=== PATIENT | male | born 1965 | race Caucasian/White ===

== ENCOUNTER 2019-09-09 19:40 | Emergency (ER) | payer MEDICAID ==
[~2019-09-09] VITALS: Ht 170.2 cm; Wt 97.1 kg
[~2019-09-09 19:40] MED LIST: ASPIR-LOW81 M1 PO; GLU500 PO; TEN25 PO; ZES20 PO
[2019-09-09 19:51] VITALS: BP 128/61; Ht 170.2 cm; Wt 97.1 kg
== END 2019-09-09 23:01 | disposition left against medical advice (07) ==
LOC: ED 19:40
DX: Z53.21 Procedure and treatment not carried out due to patient leaving prior to being seen by health care provider (principal)

== ENCOUNTER 2019-09-11 11:14 | Emergency (ER) | payer MEDICAID ==
[2019-09-11 13:42] VITALS: BP 126/79
== END 2019-09-11 13:42 | disposition home or self-care (01) ==
LOC: ED 11:14
DX: R05 Cough (principal); E11.65 Type 2 diabetes mellitus with hyperglycemia; I10 Essential (primary) hypertension; Z88.1 Allergy status to other antibiotic agents
CPT/HCPCS: 82962